=== PATIENT | female | born 1980 ===

== ENCOUNTER 2021-12-26 14:48 | Outpatient (CLI) | payer OTHER, SELFPAY ==
--- OUTSIDE RECORDS SUMMARY | 2021-12-26 14:50 | XMS_ITS | Encounter Summary ---
:1980 Author Organization [facility] Address [address] [place] [id number] Care Team Providers Name Role Phone Unavailable Primary Care Provider Unavailable Reason for Referral Outpatient (Routine) - Closed Specialty Diagnoses / Procedures Referred By Contact Refer red To Contact Diagnoses Allergy Food Initial Amador Sethi M.D., Ph.D. 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 [facility] [address] [place] [address] Referral ID Status Reason Start Date Expiration Date Visits V isits Requested Authorized [id number] Closed Specialty 02/25/2021 02/25/2022 1 1 Services Required Encounter Details Date Type Department Care Team Description 05/17/2021 Comprehensive Visit Division of Luiz Cruz M.D. [address] [place] [phone] Allergy Food Initial (Primary Dx); Allergic Diseases Merlyn So M.D. 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 2-4 times a month 05/17/2021 How many drinks containing alcohol do you have on a 1 or 2 05/17/2021 typical day when you are drinking? How often do you have six or more drinks on one Never 05/17/2021 occasion? Comment: Not asked Social Isolation Answer Date Recorded In a typical week, how many times do you More than three tor es a week 05/17/2021 talk on the phone with family, friends, or neighbors? How often do you get together with friends Three times a wee k 05/17/2021 or relatives? How often do you attend adventism or Never 2021 scientologist services? Do you belong to any clubs or No 05/17/2021 organizations such as adventism groups, unions, fraternal or athletic groups, or school groups? How often do you attend meetings of the Never 05/17/2021 clubs or organizations you belong to? Are you now , , , 05/17/2021 , never or living with a partner? Physical Activity Answer Date Recorded On average, how many days per week do you engage in moderate to 3 days 05/17/2021 strenuous exercise (like walking fast, running, jogging, dancing, swimming, biking, or other activities that cause a light or heavy sweat)? On average, how many minutes do you engage in exercise at th is 20 min 05/17/2021 level? Stress Answer Date Recorded Do you feel stress - tense, restless, nervous, or anxious, N ot at all 05/17/2021 or unable to sleep at night because your mind is troubled all the time - these days? Financial Resource Strain Answer Date Recorded How hard is it for you to pay for the very basics like Not h felicity at all 05/17/2021 food, housing, medical care, and heating? Intimate Partner Violence Answer Date Recorded Within the last year, have you been afraid of your partner o r No 05/17/2021 ex-partner? Within the last year, have you been humiliated or emotionall y No 05/17/2021 abused in other ways by your partner or ex-partner? Within the last year, have you been kicked, hit, slapped, or No 05/17/2021 otherwise physically hurt by your partner or ex-partner? Within the last year, have you been raped or forced to have any No 05/17/2021 kind of sexual activity by your partner or ex-partner? Food Insecurity Answer Date Recorded Within the past 12 months, you worried that your food would Never true 05/17/2021 run out before you got money to buy more. Within the past 12 months, the food you bought just didn't N ever true 05/17/2021 last and you didn't have money to get more. Transportation Needs Answer Date Recorded In the past 12 months, has lack of transportation kept you f rom No 05/17/2021 medical appointments or from getting medications? In the past 12 months, has lack of transportation kept you f rom No 05/17/2021 meetings, work, or getting things needed for daily living? Housing Stability Answer Date Recorded In the last 12 months, was there a time when you were not ab le No 05/17/2021 to pay the mortgage or rent on time? In the last 12 months, how many places have you lived? 1 05/17/2021 In the last 12 months, was there a time when you did not hav e a No 05/17/[address] sleep or slept in a fpc (including now)? Education Answer Date Recorded What is the highest level of school you have completed or th e Doctorate 02/20/2021 highest degree you have received? Sex Assigned at Date Recorded Female 02/20/2021 9:06 PM [employer] PACK[employer] documented as of this encounter Consult Notes Amador Sethi M.D., Ph.D. - 05/17/2021 10:00 AM CST Supervising note Ann Monreal is a 40 y.o. female with food related symptoms. I interviewed and counseled the patient,and discussed her case with . Please see her clinical note from today. The patient reports that about 6 years ago, she consumed anchovies, and developed sore throat, throat tightness and rash.This was treated with corticosteroids and resulted in an emergency department visit. The patient states that she subsequently consumed a small amount of shrimp, possibly a tsp, and developed minor throat symptoms. Similarly, the patient states that she consumed tuna, not canned, and a small amount triggered minor throat symptoms. The patient can consume salmon and white fish without problem. The patient is concerned about possible seafood allergy, and would like to reintroduce shrimp and tuna into her diet, if possible The patient has a gastrointestinal condition, possibly functional. She states that on 1 occasion consuming a large quantity of pistachios may have triggered symptoms, although she may continue to consume smaller amounts of pistachio without problem. The patient states that consumption of edamame on 1 occasion seem to trigger symptoms, although she had consumed edamame prior to this time without problem. She can consume other soy products without problems. Impression #1 Food allergy versus food intolerance We discussed the clinical objective of determining whether or not the patient can reintroduce shrimpand tuna into her diet. After discussion, we agreed to proceed with in vitro IgE antibody tests, andallergy skin testing. I will include in vitro IgE antibody testing to anchovy. If allergy skin testsand blood tests are negative, we discussed proceeding with a medically supervised oral food challenge to shrimp, and tuna. Patient shows readiness to learn. I find no barriers to communication or understanding. Patient shows full understanding of our discussion. We will communicate through the patient portal, and I will arrange for oral food challenge if clinically appropriate. Merlyn Reagan M.D. - 05/17/2021 10:00 AM CST SUBJECTIVE CHIEF COMPLAINT / REASON FOR VISIT Ann Monreal is a 40 y.o. female presenting in referral from Luiz Cruz M.D. for consultation in the evaluation of food allergies. HISTORY OF PRESENT ILLNESS The patient states that she has had abdominal pain mostly in the lower quadrants sporadically since she was an adolescent. She states that the pain improves after she has a bowel movement or if she vomits. She states that these episodes occur her sporadically, sometimes multiple times a year and sometimes once in every few years. She has noticed that they are correlated with times of increased stressin her life. She has not noticed any food associations. She states that her most recent episode, which occurred in the 2nd week of April, happened right after she ate some edamame. She states that she has edamame often, and has not had a reaction with the before. Previously, she has had an episode when she ate too many pistachios. She is able to eats soy products without any problems otherwise. Forthis abdominal pain, she has tried excluding dairy and gluten. She noticed minimal improvement. She has also had an extensive workup which has been negative thus far. She had an episode 6 years ago when she ate anchovies stuffed in tomato which caused a sore throat and throat tightness soon after. This was accompanied by a rash. She then took some steroids that she had at home and went to the ED. At this point she was prescribed a an EpiPen. She has since been hesitant to try most seafoods. She has had a bite of shrimp and tuna which led to a sore throat and she stopped eating thereafter. She is unsure if this is a component of anxiety versus real food allergy. She has had [place] and white fish and tolerated them well. She would like to incorporate more seafood into her diet and is interested in getting tested for allergies today. The following portions of the patient's history were reviewed and updated as appropriate: allergies,current medications, family history, medical history, social history, surgical history and problem list. REVIEW OF SYSTEMS Gastrointestinal: Positive for abdominal (belly) pain or cramping. The following systems were negative: Constitutional, Skin, Eyes, ENT, CV, Respiratory, , Hematologic, Musculoskeletal, Neuro, Psych OBJECTIVE PHYSICAL EXAM Constitutional General: She is not in acute distress. Appearance: Normal appearance. She is normal weight. She is not ill-appearing, toxic-appearing or diaphoretic. HENT Head: Normocephalic and atraumatic. Eyes Extraocular Movements: Extraocular movements intact. Pulmonary Effort: Pulmonary effort is normal. Musculoskeletal General: Normal range of motion. Cervical back: Normal range of motion. Skin General: Skin is warm and dry. Findings: No rash. Neurological General: No focal deficit present. Mental Status: She is alert. Psychiatric Mood and Affect: Mood normal. Behavior: Behavior normal. ASSESSMENT / PLAN #1 Pain Right Lower Quadrant #2 Diarrhea Her abdominal pain and other GI symptoms do not seem to have a correlation with a specific food triggers and therefore are unlikely to be due to a specific food intolerance. Her symptoms are sporadic and seemed to be more associated with psychosocial triggers in her life. Given the history, this couldbe a functional disorder. 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 Given that she would like to add shrimp and tuna toher diet, we will obtain in-vitro shrimp, tuna, anchovie allergy testing. We will also perform a skin test for these allergens. If she does not reactive tremor tuna, we will perform a oral food challenge in the clinic, in order for her to enjoy these foods. We advised her to avoid anchovies as she hada reaction soon after eating them. She carries an EpiPen. [employer] documented in this encounter Plan of Treatment Not on filedocumented as of this encounter Results Tuna, IgE (05/17/2021 12:20 PM CHECKER [employer] PACKER) athologist Signature Tuna, IgE <0.35 kU/L 05/17/2021 6:19 [facility] PM [facility]ER AND PACKER Comment: Class 0 (Negative <0.35) Specimen Anatomical Collection Method Collection Time Receive d Time (Source) Location / / Volume Laterality Blood (Blood, 05/17/2021 12:20 05/17/2021 3:57 Venous) PM [employer] PACKER PM [employer] PACKER Amador Sethi M.D., Ph.D. LAB BLOOD ADD-ON Performing Organization Address City/State/ZIP Code Phon e Number [facility] [address] [place] [address] Laboratory Medicine and Pathology [address] [place] [address] Dr. MODESTA Campbell, IgE (05/17/2021 12:20 PM [employer]ER AND PACKER) athologist Signature Shannan, IgE <0.35 kU/L 05/17/2021 6:19 [facility] PM [employer] AND PACKER Comment: Class 0 (Negative <0.35) Specimen Anatomical Collection Method Collection Time Receive d Time (Source) Location / / Volume Laterality Blood (Blood, 05/17/2021 12:20 05/17/2021 3:57 Venous) PM [employer] PACKER PM [employer] PACKER Amador Sethi M.D., Ph.D. LAB BLOOD ADD-ON Performing Organization Address [facility] Phon e Number [address] [place] [address] Laboratory Medicine and Pathology [address] [place] [address] Dr. MODESTA Sparrow IgE (05/17/2021 12:20 PM CHECKER AND PACKER) [facility] Kyara, IgE <0.35 kU/L 05/17/2021 [facility] 6:31 PM [employer] AND PACKER Comment: Class 0 (Negative <0.35) ----ADDITIONAL INFORMATION---- This test was developed using an analyte specific reagent. Its performance characteristics were det ermined by [facility] in a manner consistent with CLIA requirements. This test has not been cleared or approved by the U.S. Food and Drug Administration. Specimen Anatomical Collection Method Collection Time Receive d Time (Source) Location / / Volume Laterality Blood (Blood, 05/17/2021 12:20 05/17/2021 3:57 Venous) PM [employer] PACKER PM [employer] PACKER Amador Sethi M.D., Ph.D. LAB BLOOD ADD-ON Performing Organization Address City/[facility] Phon e Number [address] [place] [address] Laboratory Medicine and Pathology [address] [place] [address] Dr. [place] Miscellaneous Skin Test (05/17/2021 12:00 PM CHECKER AND PACKER) Narrative [facility] - 05/17/2021 12:00 PM CHECKER AND PACKER Augustus Khan M.D. ? 05/18/2021 ??7:18 PM Panel Skin Tests ?? Flowsheet Row Clinical Support from 2021 in Division of Allergic Diseases in [facility] a Controls ?? Prick Control 0 Histamine (15 min W/F) 8x8f Glycerine (15 min W/F) 0 Fish ?? Shrimp (shellfish) 0 Tuna 0 Negative Skin Test. ??Clinical correlati on recommended. Amador Sethi M.D., Ph.D. 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
--- OUTSIDE RECORDS SUMMARY | 2021-12-26 14:50 | XMS_ITS | Encounter Summary ---
:1980 Author Organization [facility] Address [address] [place] [address] Care Team Providers Name Role Phone Unavailable Primary Care Provider Unavailable Reason for Referral Outpatient (Routine) - Authorized Specialty Diagnoses / Procedures Referred By Contact Refer red To Contact Luiz Cruz M.D. 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 [facility] [address] [place] [phone] Referral ID Status Reason Start Date Expiration Date Visits V isits Requested Authorized [id number] Closed Specialty 02/25/2021 02/25/2022 1 1 Services Required PENDENT PRODUCER Reason for Visit Outpatient (Routine) - Closed Specialty Diagnoses / Referred By Referred To Cont act Procedures Contact Gastroenterology and Diagnoses Pain Abdominal NOS [facility] [address] [place] [address] Referral ID Status Reason Start Date Expiration Date Visits Requ ested Visits Authorized [id number] Closed 11/26/2020 11/26/2021 1 1 Encounter Details Date Type Department Care Team Description 02/25/2021 Comprehensive Visit Division of Serina Bonner N.P. 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 [address] [place] [phone] Pain Right Lower Quadrant; [place], [place] Diarrhea; [address] [facility] [place] [address] Social History Tobacco Use Types Packs/Day Years [...] or relatives? How often do you attend muslim or Never 2021 methodist services? Do you belong to any clubs or No 05/17/2021 organizations such as muslim groups, unions, fraternal or athletic groups, or [...] place to sleep or slept in a halfway (including now)? Education Answer Date Recorded What is the highest level of school you have completed or th e Doctorate 02/20/2021 highest degree you have received? Sex Assigned at Date Recorded Female 02/20/2021 9:06 PM INDEPENDENT PRODUCER documented as of this encounter Last Filed Vital Signs Vital Sign Reading Time Taken Comments Blood Pressure 118/78 02/25/2021 1:00 PM INDEPENDENT PRODUCER Pulse 66 02/25/2021 1:00 PM INDEPENDENT PRODUCER Temperature - - Respiratory Rate - - Oxygen Saturation - - Inhaled Oxygen Concentration - - Weight 59 kg (130 lb 1.1 oz) 02/25/2021 1:00 PM INDEPENDENT PRODUCER Height 162.4 cm (5' 3.94) 02/25/2021 1:00 PM INDEPENDENT PRODUCER Body Mass Index 22.37 02/25/2021 1:00 PM INDEPENDENT PRODUCER documented in this encounter Consult Notes Fabiola Long M.D., Ph.D. - 02/25/2021 1:10 PM CST This is GI supervisory note (for details of history, please refer to Luiz Nye note) I reviewed the patient's documentation as outlined in GI fellow physician Luiz Nye's note andalso evaluated the patient myself at the time of service. We discussed the patient's care in detail,and I agree with the assessment and recommendations as outlined. In brief, 40 y/o F, complaint of chronic GI episodesdistress, (question of IBS history per pt) without clear triggers; unpredictable, abdominal discomfort/bloat/gas; outside CT 11/2020- increased stool burden, otherwise unrevealing; denied rectal straining, denied defecation issue; pt mentioned abo ut a severe skin reaction (rash/desquamation per pt) after consumed anchovy, which occurred about 5 yrs ago; underlying hx of asthma; Hx of 3 vaginal deliveries; No alarming sign, no anemia, no weight loss, no nocturnal GI symptom; ASSESSMENT / PLAN IMPRESSIONS 1. Chronic GI episodes (abd distress, bloat/gas, some bowel urgency), unidentified trigger; no alarming signs, no clear pelvic floor dysfunction, no rectal defecation issue; Differentials: food intolerance or ?allergy; 2. Noticed significant immunologic reaction (severe skin rashes) after anchovy (per pt, not first time consumed) 5 yrs ago; 3. Hx of asthma; we decided to proceed as follows: 1. Empiric trial miralax for more complete bowel defecation 2. Allergy/Immunology clinic referral for question of food/environment allergens; 3. We discussed about in broader differential could include eosinophilic gastroenteritis (which needendoscopic tissue bx), pt prefer not to proceed these at this point 4. Possible future plan of low-FODMAP diet (with pet care technician guidance) 5. encourgae pt to follow up GI clinic (Luiz Nye) or if any question; Electronically signed by: Fabiola Long M.D., Ph.D. 02/25/2021 2:29 PM INDEPENDENT PRODUCER PENDENT PRODUCER Luiz Cruz M.D. - 02/25/2021 1:10 PM CST GASTROENTEROLOGY & HEPATOBILIARY CONSULT Date/Time: 02/25/2021 2:52 PM INDEPENDENT PRODUCER Patient Name: Ann Monreal : 1980 Referral Source: Mirela Bonner N.P. Subjective: HPI: Mrs. Monreal presents for further evaluation regarding intermittent episodes of abdominal distress. She shares that even in her youth as a teenager she did have gastrointestinal symptoms that were quite sporadic in nature. She finds it hard to classify whether these symptoms have progressed since that time. However, some of the episodes have been alarming. This subsequently led to seeking further medical evaluation. Outside of the windows of abdominal distress she maintains a cleansing bowel movement once a day. Columbia stool quality is a 4. She does not need to strain, push, or utilize digitation in order to facilitate the passage of stool. Furthermore, she has no additional gastrointestinal symptoms such as abdominal pain, nausea, or vomiting. During her episodes they often begin with a stomach/spasm sensation. This is localized to the lower quadrants bilaterally. It will then crescendo in terms of intensity, and at that point she will try to have a bowel motion. After a bowel motion she will have improvement of the pain. Overall this will last an hour. Other associated symptoms can include nausea as well as forceful emesis. During these episodes her Columbia stool quality is a 5 or a 6. There is no firmer stool ever noted. Fortunately, there have not been any other high risk features based on her description. During an episode this may recur a few times within a day. Sometimes they can occur a few times a day over a duration of 2-3 days. Over the last summer she did have several. Her most recent was in January. It seems in November she was also experiencing some of these sequelae, and abdominal imaging was obtained at that time. In further discussion, it does seem she has intensification of her abdominal gas during menses. Through review, it does not seem there are any other clear patterns. Furthermore, there are no changes inher bowel characteristics or dietary behaviors leading up to these events. There has been only one occasion where a high volume of pistachio nuts was thought to maybe be linked. In the past she did have an allergic reaction with the ingestion of anchovies. ROS: Other than the pertinent positives and negatives listed in the HPI, all other systems were reviewed and negative. History Review: The following portions of the patient's history were reviewed and updated as appropriate: allergies,current medications, family history, medical history, social history, surgical history and problem list. Objective: Vital Signs: Vitals: 02/25/21 1300 BP: 118/78 Pulse: 66 Physical Exam: General: Resting comfortably. Skin: Warm, dry, intact. No rash, lesion, or ecchymoses. Head: Normocephalic, atraumatic. ENT: Moist mucosal membranes. PERRLA. Lymph: No lymphadenopathy or edema. Heart: Regular rate and rhythm, no murmur, gallop, or rub. Lungs: Clear to auscultation bilaterally, normal respiratory effort. Abdomen: No tenderness is elicited with palpation. Appropriate abdominal sounds are noted. No masslike density. Nondistended. Rectum: On simulated defecation there is increased movement of the perineum. Resting tone as well asvoluntary squeeze are normal. No paradoxical contraction is noted with simulated defecation. There is significant anterior wall prolapse. Stool is retained within the rectal vault. No blood. MSK: Normal muscle bulk. Neuro: No gross sensory motor deficits. Mental: Alert and oriented. Assessment and Plan: Mrs. Monreal is a very pleasant 40-year-old lady who presents for further evaluation of episodic abdominal pain and nausea with symptomatic improvement after defecation and vomiting. DISCUSSION: In review of the available outside studies, the most pertinent was the CT of the abdomen and pelvis from November of 2020. We had an opportunity to review those images. Overall, she does have significantloading of stool primarily along the right side of the colon. It seems much of her cecum and ascending colon lay deep within the pelvis. Physical exam did note significant prolapse of the anterior rectal vault in lieu of vaginal prolapse into this space. We do question whether there is slow retention of stool that ultimately leads to colonic distention and a perceived abdominal pain/distension. She does not meet criteria for irritable bowel syndrome. Fortunately, CT did not find any other structuralcause for her abnormality. Our review does not suggest features that would otherwise warrant endoscopy at this juncture. In review of her local evaluation, there have been other davis studies conducted. TSH, CRP, stool assessment for ova and parasites, as well as H pylori have resulted normal. Celiac serology was assessed and normal. At this time she has had an appropriate evaluation. Through our discussion, we do find the historic allergic reaction to anchovies quite curious. She would welcome further assessment in thisregard to determine if she needs to firmly stay away from this product. Overall, we are quite hopeful that with conservative prophylactic medications as well as those utilized as needed will provide significant symptomatic improvement. At this time we plan to proceed as follows. 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 We will facilitate a connection to allergy to further review the anaphylactic reaction ??? She will utilize MiraLax and titrate to obtain a standing dose to further help mobilize her stool ??? We would encourage her to connect with her primary care physician to review the utilization of an anti spasmodic such as Bentyl or Levsin. This agent could be utilized during the time of abdominal pain/spasm ??? Will connect in the coming months to review how she is doing ??? Should there be symptom progression 1 would consider anorectal manometry as well as an MR decography Luiz Cruz M.D. This patient was staffed with Dr. Long. PATIENT EDUCATION Ready to learn, no apparent learning barriers were identified; learning preferences include listening. Explained diagnosis and treatment plan; patient expressed understanding of the content. Answers for HPI/ROS submitted by the patient on 02/24/2021 Night sweats: Yes No eye issues: Yes No ENT issues: Yes No heart issues: Yes No respiratory issues: Yes Abdominal (belly) pain or cramping: Yes No muscle/bone issues: Yes No skin issues: Yes No neurologic issues: Yes No mental health issues: Yes No blood/lymph issues: Yes No urinary/reproductive issues: Yes PENDENT PRODUCER documented in this encounter Plan of Treatment Scheduled Referrals Name Type Priority Associated Order Schedule Diagnoses Allergy and Outpatient Referral Routine Pain Right Lower Expe cted: Immunology - General Quadrant 02/25/2021 consult (clinic) Diarrhea (Approximate), Anaphylactic Expires: Reaction Due To 02/26/2024 Other Fish Initial NonF2F phone visit Outpatient Referral Routine Ex pected: 05/28/2021 (Approximate), Expires: 02/26/2024 documented as of this encounter Visit Diagnoses Diagnosis 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
--- OUTSIDE RECORDS SUMMARY | 2021-12-26 14:50 | XMS_ITS | Encounter Summary ---
:1980 Author Organization [facility] Address [address] [place] [address] Care Team Providers Name Role Phone Unavailable Primary Care Provider Unavailable Encounter Details Date Type Department Care Team Description 05/13/2021 Clinical Communication Division of [facility] Alex So, [facility] [address] [place], [place] [address] [facility] [address] [place], [place] [phone] [phone] (Work) [phone] Social History Tobacco Use Types Packs/Day Years [...] or relatives? How often do you attend jehovah's witness or Never 2021 muslim services? Do you belong to any clubs or No 05/17/2021 organizations such as jehovah's witness groups, unions, fraternal or athletic groups, or [...] minutes do you engage in exercise at is 20 min 05/17/2021 level? Stress Answer [...] place to sleep or slept in a long-term (including now)? Education Answer Date Recorded What is the highest level of school you have completed or th e Doctorate 02/20/2021 highest degree you have received? Sex Assigned at Date Recorded Female 02/20/2021 9:06 PM CLEANER LABORATORY EQUIPMENT documented as of this encounter Plan of Treatment Not on filedocumented as of this encounter Visit Diagnoses Not on filedocumented in this encounter
--- OUTSIDE RECORDS SUMMARY | 2021-12-26 14:50 | XMS_ITS | Encounter Summary ---
:1980 Author Organization [facility] Address [address] [place] [address] Care Team Providers Name Role Phone Unavailable Primary Care Provider Unavailable Encounter Details Date Type Department Care Team Description 05/17/2021 Hospital Encounter Department of Amador Sethi, Allergy Food Initial Laboratory Medicine MKaitlyn., Ph.D. and Pathology, [address] [facility] in [place], [place] [address] [place] [address] [place], [place] (Work) [phone] Social History Tobacco Use Types Packs/Day [...] or relatives? How often do you attend gnosticism or Never 2021 mu-ism services? Do you belong to any clubs or No 05/17/2021 organizations such as gnosticism groups, unions, fraternal or athletic groups, or [...] place to sleep or slept in a long term (including now)? Education Answer Date Recorded What is the highest level of school you have completed or e Doctorate 02/20/2021 highest degree you have received? Sex Assigned at Date Recorded Female 02/20/2021 9:06 PM SENIOR LEAD JAVA DEVELOPER documented as of this encounter Medications at Time of Discharge Medication Sig Dispensed Refills Start Date End Date albuterol 90 Every 4 Hours as 0 07/06/2015 mcg/actuation inhaler needed buPROPion (WELLBUTRIN SR) Take 150 mg by mouth 0 03/18/2021 150 mg 12 hr tablet every morning. buPROPion, smoking Daily 0 deterrent, (ZYBAN) 150 mg 12 hr tablet cholecalciferol (VITAMIN Taking occasionally 0 D3) 125 mcg (5,000 Unit) tablet NUTRITIONAL SUPPLEMENTS Daily 0 ORAL [id number]-smog 0 oil 1,050-1,200 mg capsule sertraline (ZOLOFT) 100 Daily 0 05/27/2015 mg tablet documented as of this encounter Miscellaneous Notes Result Encounter Note - Amador Sethi M.D., Ph.D. - 05/18/2021 8:13 AM SENIOR LEAD JAVA DEVELOPER Allergy blood tests and skin tests negative. I can arrange for an oral food challenge if patient wishes. OR LEAD JAVA DEVELOPER documented in this encounter Plan of Treatment Not on filedocumented as of this encounter Procedures Procedure Name Priority Date/Time Associated Diagnosis Comme nts TUNA, IGE, S Routine 05/17/2021 12:20 PM Allergy Food Initial Results for this SENIOR LEAD JAVA DEVELOPER procedure are i n the results section. SHRIMP, IGE, S Routine 05/17/2021 12:20 PM Allergy Food Initia l Results for this SENIOR LEAD JAVA DEVELOPER procedure are i n the results section. ANCHOVY, IGE, S Routine 05/17/2021 12:20 PM Allergy Food Initi al Results for this SENIOR LEAD JAVA DEVELOPER procedure are i n the results section. documented in this encounter Results Mayo IgE (05/17/2021 12:20 PM SENIOR LEAD JAVA DEVELOPER) athologist Signature Mayo, IgE <0.35 kU/L 05/17/2021 6:19 SDSC PM SENIOR LEAD JAVA DEVELOPER Comment: Class 0 (Negative <0.35) Specimen Anatomical Collection Method Collection Time Receive d Time (Source) Location / / Volume Laterality Blood (Blood, 05/17/2021 12:20 05/17/2021 3:57 Venous) PM SENIOR LEAD JAVA DEVELOPER PM SENIOR LEAD JAVA DEVELOPER Amador Sethi M.D., Ph.D. LAB BLOOD ADD-ON Performing Organization Address [facility] Phon e Number [address] [place] [address] SUPPORT [facility] [place] [address] Laboratory Medicine and Pathology [address] [place] [address] Dr. MODESTA Campbell IgE (05/17/2021 12:20 PM SENIOR LEAD JAVA DEVELOPER) athologist [facility] Shrimp, IgE <0.35 kU/L 05/17/2021 6:19 SDSC PM SENIOR LEAD JAVA DEVELOPER Comment: Class 0 (Negative <0.35) Specimen Anatomical Collection Method Collection Time Receive d Time (Source) Location / / Volume Laterality Blood (Blood, 05/17/2021 12:20 05/17/2021 3:57 Venous) PM SENIOR LEAD JAVA DEVELOPER PM SENIOR LEAD JAVA DEVELOPER Amador Sethi M.D., Ph.D. LAB BLOOD ADD-ON Performing Organization Address City/[facility] Phon e Number [address] [place] [address] [place] [address] Laboratory Medicine and Pathology [address] [place] [address] Dr. MODESTA Sparrow IgE (05/17/2021 12:20 PM SENIOR LEAD JAVA DEVELOPER) athologist [facility] [place] Kyara, IgE <0.35 kU/L 05/17/2021 [facility] 6:31 PM SENIOR LEAD JAVA DEVELOPER Comment: Class 0 (Negative <0.35) ----ADDITIONAL INFORMATION---- This test was developed using an analyte specific reagent. Its performance characteristics were det ermined by [facility] in a manner consistent with CLIA requirements. This test has not been cleared or approved by the U.S. Food and Drug Administration. Specimen Anatomical Collection Method Collection Time Receive d Time (Source) Location / / Volume Laterality Blood (Blood, 05/17/2021 12:20 05/17/2021 3:57 Venous) PM SENIOR LEAD JAVA DEVELOPER PM SENIOR LEAD JAVA DEVELOPER Amador Sethi M.D., Ph.D. LAB BLOOD ADD-ON Performing Organization Address City/State/ZIP Code Phon e Number [facility] [address] [place] [address] SUPPORT CENTER [facility] [place] [address] Laboratory Medicine and Pathology [address] [place] documented in this encounter Visit Diagnoses Diagnosis Allergy Food Initial documented in this encounter
--- OUTSIDE RECORDS SUMMARY | 2021-12-26 14:50 | XMS_ITS | Encounter Summary ---
:1980 Author Organization [facility] Address [address] [place] [address] Care Team Providers Name Role Phone Unavailable Primary Care Provider Unavailable Reason for Referral Outpatient (Routine) - Closed Specialty Diagnoses / Referred By Referred To Cont act Procedures Contact Gastroenterology and Diagnoses Pain Abdominal NOS Diarrhea [facility] [address] [place] [address] Referral ID Status Reason Start Date Expiration Date Visits Requ ested Visits Authorized [id number] Closed 11/26/2020 11/26/2021 1 1 Encounter Details Date Type Department Care Team Description 11/26/2020 [facility] Mirela Bonner P ain Abdominal NOS (Primary Dx); AND CLINICS N.P. Diarrhea [address] [facility] [address] [place] [address] [place], [place] [phone] [id number] Social History Tobacco Use Types Packs/Day Years Used Date Smoking Tobacco: Never Assessed Alcohol Habits Answer Date Recorded How often [...] or relatives? How often do you attend buddhism or Never 2021 yarsanism services? Do you belong to any clubs or No 05/17/2021 organizations such as buddhism groups, unions, fraternal or athletic groups, or [...] place to sleep or slept in a retirement (including now)? Sex Assigned at Date Recorded Female 02/20/2021 9:06 PM MANAGER LANDSCAPE documented as of this encounter Plan of Treatment Scheduled Referrals Name Type Priority Associated Order Schedule Diagnoses Gastroenterology & Outpatient Routine Pain Abdomina l NOS Expected: Hepatology Referral Referral Diarrhea 11/27/19 21 (Approximate), Expires: 11/27/2023 documented as of this encounter Visit Diagnoses Diagnosis Pain Abdominal NOS - Primary Diarrhea documented in this encounter
--- OUTSIDE RECORDS SUMMARY | 2021-12-26 14:50 | XMS_ITS | Clinical Summary ---
:1980 Author Organization [facility] Address [address] [place] [address] Care Team Providers Name Role Phone Unavailable Primary Care Provider Unavailable Source Comments Patient records contain information from all sites at [facility]. For routine questions regarding patient records, call [phone] during business hours, M-F 8:00 AM - 5:00 PM Central Time. Record requests for emergency care only can be directed to [phone] at any time.[facility] Allergies Active Allergy Reactions Severity Noted Date Comments Fish Oil (Anchovy, Sardine) Anaphylaxis Low 11/26/2018 Inhaled Anesthetics (Halogen Based) Anaphylaxis 02/03 Medications Medication Sig Dispensed Refills Start Date End Date Status sertraline (ZOLOFT) Daily 0 05/27/2015 Active 100 mg tablet cholecalciferol Taking 0 06/01/2015 Act js (VITAMIN D3) 125 mcg occasionally (5,000 Unit) tablet buPROPion, smoking Daily 0 A ctive deterrent, (ZYBAN) 150 mg 12 hr tablet albuterol 90 Every 4 Hours as 0 07/06/2015 Active mcg/actuation inhaler needed [id number] Active sh oil 1,050-1,200 mg capsule NUTRITIONAL Daily 0 Active SUPPLEMENTS ORAL buPROPion (WELLBUTRIN Take 150 mg by 0 03/18/2021 Active SR) 150 mg 12 hr mouth every tablet morning. Active Problems No known active problems Family History Medical History Relation Name Comments Ulcerative colitis Mother Relation Name Status Comments Mother Social History Tobacco Use Types Packs/Day Years [...] or relatives? How often do you attend zoroastrian or Never 2021 christianity services? Do you belong to any clubs or No 05/17/2021 organizations such as zoroastrian groups, unions, fraVolance or athletic groups, or school groups? How [...] at Date Recorded Female 02/20/2021 9:06 PM SPECIAL EDUCATION SUPERINTENDENT Last Filed Vital Signs Vital Sign Reading Time Taken Comments Blood Pressure 118/78 02/25/2021 1:00 PM SPECIAL EDUCATION SUPERINTENDENT Pulse 66 02/25/2021 1:00 PM SPECIAL EDUCATION SUPERINTENDENT Temperature - - Respiratory Rate - - Oxygen Saturation - - Inhaled Oxygen Concentration - - Weight 59 kg (130 lb 1.1 oz) 02/25/2021 1:00 PM SPECIAL EDUCATION SUPERINTENDENT Height 162.4 cm (5' 3.94) 02/25/2021 1:00 PM SPECIAL EDUCATION SUPERINTENDENT Body Mass Index 22.37 02/25/2021 1:00 PM SPECIAL EDUCATION SUPERINTENDENT Plan of Treatment Health Maintenance Due Date Last Done Comments HIV Screening 1980 Hepatitis B Vaccines (1 of 1980 3 - 3-dose series) Hepatitis C Screening 1980 Lipid (Cholesterol) 1980 Screening Mammogram 1980 DTaP,Tdap,and Td Vaccines 01/30/2021 01/30/2011, 01/30/2011 , (3 - Tdap) 01/10/2011 Depression Screening 04/16/2021 (Annual PHQ-2) Influenza Vaccine (#1) 2022 01/12/2021, 01/06/2020, 02/17/2019, Additional history exists Cervical Cancer Screening 02/17/2022 02/17/2019 COVID-19 Vaccine Completed 03/14/2021, 08/24/2020, 07/27/2020 Pneumococcal vaccine (0-64 Aged Out No lo nger eligible years) based on patient 's age to complete this topic Insurance Payer Benefit Plan / Subscriber ID Effective Phone Address T e Group [facility] [id number] 2014-Pres [phone] [address] PPO OPEN ACCESS [facility] [address] [place] [address]
--- OUTSIDE RECORDS SUMMARY | 2021-12-26 14:50 | XMS_ITS | Encounter Summary ---
:1980 Author Organization [facility] Address [address] [place] [address] Care Team Providers Name Role Phone Unavailable Primary Care Provider Unavailable Reason for Visit Reason Comments Allergy Testing Outpatient (Routine) - Closed Specialty Diagnoses / Procedures Referred By Contact Refer red To Contact Diagnoses Allergy Food Initial Amador Sethi M.D., Ph.D. [facility] Procedures Miscellaneous Skin Test [address] [place], [place] [phone] Referral ID Status Reason Start Date Expiration Date Visits Requ ested Visits Authorized [id number] Closed 05/17/2021 05/17/2022 1 1 Encounter Details Date Type Department Care Team Description 05/17/2021 Clinical Support Division of Allergic Amador Sethi M.D., Ph.D. [address] [place] [phone] Allergy Food Initial Diseases in Evelina Hodgson R.N. [place], [place] [address] [place] [phone] Social History Tobacco Use Types Packs/Day Years [...] or relatives? How often do you attend restorationism or Never 2021 taoist services? Do you belong to any clubs or No 05/17/2021 organizations such as restorationism groups, unions, fraternal or athletic groups, or [...] place to sleep or slept in a usp (including now)? Education Answer Date Recorded What is the highest level of school you have completed or e Doctorate 02/20/2021 highest degree you have received? Sex Assigned at Date Recorded Female 02/20/2021 9:06 PM WEARING APPAREL FOLDER documented as of this encounter Procedure Notes Augustus Khan M.D. - 05/17/2021 12:00 PM CSTAssociated Order(s): ALI MISCELLANEOUS SKIN TEST Panel Skin Tests Flowsheet Row Clinical Support from 05/17/2021 in Division of Allergic Diseases in [place], [place] Controls Prick Control 0 Histamine (15 min W/F) 8x8f Glycerine (15 min W/F) 0 Fish Shrimp (shellfish) 0 Tuna 0 Negative Skin Test. Clinical correlation recommended. ING APPAREL FOLDER documented in this encounter Plan of Treatment Not on filedocumented as of this encounter Procedures Procedure Name Priority Date/Time Associated Comments Diagnosis ALI MISCELLANEOUS SKIN Routine 05/17/2021 12:00 Allergy Food R esults for this TEST PM WEARING APPAREL FOLDER Initial procedure are i n the results section. documented in this encounter Results Miscellaneous Skin Test (05/17/2021 12:00 PM WEARING APPAREL FOLDER) Narrative [facility]ODAL - 05/17/2021 12:00 PM WEARING APPAREL FOLDER Augustus Khan M.D. ? 05/18/2021 ??7:18 PM Panel Skin Tests ?? Flowsheet Row Clinical Support from 2021 in Division of Allergic Diseases in [facility] a Controls ?? Prick Control [...]
--- OUTSIDE RECORDS SUMMARY | 2021-12-26 14:51 | XMS_ITS | Clinical Summary ---
:1980 Author Organization [facility] [place] [address] Care Team Providers Name Role Phone Des Freeman MD Primary Care Provider Allergies Active Allergy Reactions Severity Noted Date Comments Inhaled Anesthetics (Halogen Based) Anaphylaxis 02/03 Medications Medication Sig Dispensed Refills Start Date End Date Status sertraline 3 05/27/2015 Active (ZOLOFT) 100 mg tablet Cholecalciferol, Take by mouth once 0 06/01/2015 Active Vitamin D3, daily. (VITAMIN D-3) 5,000 unit tab buPROPion 3 08/19/2015 Active (WELLBUTRIN SR; ZYBAN) 150 mg Sustained-Release tablet medication order Vital [employer] Adrenal 0 01/26/2017 Active composer Supplement, Iron, Vit B complex, Methyl-Guard, Arthobiotic 100, Arbinogalactan Powder, Vit D with K2, Digestive enzymes Active Problems Problem Noted Date Family history of diabetes mellitus in father 03/08/20 15 (spontaneous vaginal delivery) 10/11/2014 Depression 10/11/2014 Overview: Stable on wellbutrin/Zoloft Sees psychiatrist Anxiety 10/11/2014 Overview: Stable on Wellbutrin and Zoloft Sees psychiatrist AMA (advanced maternal age) multigravida 35+ 5 Prolonged, labor, first stage 10/09/2014 Supervision of normal in third trimester Resolved Problems Problem Noted Date Resolved Date Supervision of normal first 02/04/2012 Prolonged second stage of labor 02/04/2012 10/09/19 15 Vacuum extraction, delivered, current hospitalization 201110/08/2014 Immunizations Name Administration Dates Next Due AMB Influenza, IIV3 (Age >=3 years) Preserve Free (Flu 01/14 Clinic Only) Family History Medical History Relation Name Comments Diabetes Father Heart Disease Father Hyperlipidemia Father high cholesterol Hypertension Father Other Father liver disease/de pression Other Maternal Grandfather parkinsonis m Arthritis Maternal Grandmother Hypertension Maternal Grandmother Arthritis Mother osteoarthritis Hypertension Mother Hypertension Paternal Grandfather Other Paternal Grandfather depression Relation Name Status Comments Father Alive Maternal Grandfather Maternal Grandmother Mother Alive Paternal Grandfather Social History Tobacco Use Types Packs/Day Years Used Date Never Smoker Smokeless Tobacco: Never Used Tobacco Cessation: Counseling Given: Yes Alcohol Use Standard Drinks/Week Comments No 0 (1 standard drink = 0.6 oz pure alcoho l) Sex Assigned at Date Recorded Not on file Obstetrics History Para Term AB IAB SAB Ectopic Multiple Living Live Births 2 1 1 1 1 Date Outcome GA Total Labor/2nd/3rd Weight Sex Delivery Anes PTL Farida A 1 A5 Name Clin Labor 02/03 Term M Vag None N Sameera /2011 ng Comments: System Generated. Please review and update details. Last Filed Vital Signs Vital Sign Reading Time Taken Comments Blood Pressure 102/78 10/02/2019 1:35 PM CDT Pulse 64 10/02/2019 1:35 PM CDT Temperature 36.7 ??C (98.1 ??F) 10/11/2014 4:42 AM CDT Respiratory Rate 16 01/26/2017 1:58 PM CDT Oxygen Saturation 98% 09/02/2015 8:29 AM CDT Inhaled Oxygen Concentration - - Weight 58.1 kg (128 lb) 10/02/2019 1:35 PM CDT Height 157.5 cm (5' 2.01) 10/02/2019 1:35 PM CDT Body Mass Index 23.41 10/02/2019 1:35 PM CDT Plan of Treatment Health Maintenance Due Date Last Done Comments COVID-19 vaccine series (#1) 04/24/1979 Hepatitis C screening for age 0710/22/1996 18-79 Depression screening for age 12+ 01/26/2018 01/26/2017, , 06/01/2015 BMI (ht and wt on same day) for 10/01/2020 10/02/2019, 05/18, age 18+ 01/26/2017, Additional history exists Tetanus booster 01/30/2021 01/30/2011 Influenza for age 9-49 12/15/2021 01/27/2015, 01/15/2012 Pap test for age 21-65 02/18/2024 02/17/2019, 02/17/2019, 11/16/2016, Additional history exists Tdap Completed 01/30/2011 Results Not on filefrom Last 3 Months Insurance Payer Benefit Plan / Subscriber ID Effective Dates Phone Addre ss Type Group [employer] [id number] 2014-Present [address] [place] [address] (Home) [place], [place] [phone] (Work) Advance Directives Documents on File Type Date Recorded Patient Training Project Manager Explanati on Treatment Guidelines 10/15/2014 3:43 PM SEPTEMBER 2014 Latest Code Status on File Code Status Date Activated Date Inactivated Comments Full Code 10/09/2014 5:54 AM 10/11/2014 4:05 PM Full Code 10/08/2014 5:37 PM 10/09/2014 5:54 AM Full Code 10/08/2014 5:19 AM 10/08/2014 5:37 PM Full Code 02/04/2012 6:45 PM 02/06/2012 3:59 PM Full Code 02/04/2012 1:48 AM 02/04/2012 6:45 PM Care Teams Pole Framer Relationship Specialty Start Date End Date Des Freeman MD PCP - General Family Practice 09/25/191999 [place] [phone]
--- NOTE | 2021-12-26 15:00 | CRLHL7_ITS ---
For Patients: As a result of the Century Cures Act, medical imaging exams and procedure reports are released immediately into your electronic medical record. You may view this report before your referring provider. If you have questions, please contact your health care provider. BILATERAL SCREENING MAMMOGRAM WITH COMPUTER-AIDED DETECTION AND TOMOSYNTHESIS TECHNIQUE: CC and MLO views were obtained. These mammographic images have been obtained using full-field digital technique. These mammographic images were interpreted with the benefit of computer-aided detection. Breast Tomosynthesis was used in this interpretation. COMPARISON FILM: 12/14/20, 12/27/20 (Left). FINDINGS: The breasts are extremely dense, which lowers the sensitivity of mammography IMPRESSION: There is no radiographic evidence for malignancy. ASSESSMENT: BI-RADS Category 2: Benign RECOMMENDATION: Routine screening mammogram in 1 year. A lay language report of this examination will be provided to the patient. Ted Menendez M.D. Diagnostic Radiologist [email or web address] CHRISTINE/Dictated by: Ted Menendez MD @ 12/27/2021 8:45:00 AM (Electronically Signed)
== END 2021-12-26 14:49 | disposition home or self-care (01) ==
LOC: MAMMO 14:49
PROVIDERS: PCP Family Medicine; Visit Provider Family Medicine
DX: Z12.31 Encounter for screening mammogram for malignant neoplasm of breast (principal); R92.2 Inconclusive mammogram
CPT/HCPCS: 77063; 77067

== ENCOUNTER 2021-12-27 09:21 | Outpatient (CLI) | payer OTHER, SELFPAY ==
[2021-12-27 12:46] LABS: Cholesterol* 221 mg/dL (90-199); HDL Cholesterol* 79 mg/dL (>=50); LDL Cholesterol Calculated 124 mg/dL (<100); Triglycerides* 89 mg/dL (40-149)
[2021-12-27 23:04] LABS: Glucose* 97 mg/dL (60-115)
== END 2021-12-27 09:22 | disposition home or self-care (01) ==
PROVIDERS: PCP Family Medicine; Visit Provider Family Medicine
DX: Z13.1 Encounter for screening for diabetes mellitus (principal); Z13.6 Encounter for screening for cardiovascular disorders
CPT/HCPCS: 80061; 82947

== ENCOUNTER 2022-12-27 12:57 | Outpatient (CLI) | payer OTHER, SELFPAY ==
--- NOTE | 2022-12-27 13:00 | CRLHL7_ITS ---
For Patients: As a result of the Century Cures Act, medical imaging exams and procedure reports are released immediately into your electronic medical record. You may view this report before your referring provider. If you have questions, please contact your health care provider. BILATERAL SCREENING MAMMOGRAM WITH COMPUTER-AIDED DETECTION AND TOMOSYNTHESIS TECHNIQUE: CC and MLO views were obtained. These mammographic images have been obtained using full-field digital technique. These mammographic images were interpreted with the benefit of computer-aided detection. Breast Tomosynthesis was used in this interpretation. COMPARISON FILM: 12/26/21, 12/14/20. FINDINGS: The breasts are extremely dense, which lowers the sensitivity of mammography IMPRESSION: There is no radiographic evidence for malignancy. ASSESSMENT: BI-RADS Category 1: Negative RECOMMENDATION: Routine screening mammogram in 1 year. A lay language report of this examination will be provided to the patient. Ted Menendez M.D. Diagnostic Radiologist [email or web address] CHRISTINE/Dictated by: Ted Menendez MD @ 12/28/2022 9:48:00 AM (Electronically Signed)
== END 2022-12-27 12:58 | disposition home or self-care (01) ==
LOC: MAMMO 12:57
PROVIDERS: PCP Family Medicine; Visit Provider Family Medicine
DX: Z12.31 Encounter for screening mammogram for malignant neoplasm of breast (principal); R92.2 Inconclusive mammogram
CPT/HCPCS: 77063; 77067

== ENCOUNTER 2023-01-16 08:39 | Outpatient (CLI) | payer OTHER, SELFPAY | END 2023-01-16 08:40 | disposition home or self-care (01) | LOC: NFLDREF 01-17 11:44 | PROVIDERS: PCP Family Medicine; Referring Provider Family Medicine; Visit Provider Family Medicine | DX: Z00.00 Encounter for general adult medical examination without abnormal findings (principal); E78.5 Hyperlipidemia, unspecified | CPT/HCPCS: 80053; 80061 ==

== ENCOUNTER 2023-04-12 12:14 | Outpatient (CLI) | payer OTHER, SELFPAY ==
--- NOTE | 2023-04-12 12:15 | CRLHL7_ITS ---
For Patients: As a result of the Century Cures Act, medical imaging exams and procedure reports are released immediately into your electronic medical record. You may view this report before your referring provider. If you have questions, please contact your health care provider. INDICATION: menorrhagia COMPARISON: none TECHNIQUE: 2D scott scale and color Doppler images were acquired of the pelvis using a transabdominal and transvaginal approach. FINDINGS: Sonographic images demonstrate a normal size and smooth outer contour of the uterus. Uterus measures 9.0 cm in length by 4.1 cm in AP diameter by 5.2 cm in transverse dimension. The myometrium has a heterogeneous echotexture. There is an intramural fibroid present measuring 8 x 5 x 9 millimeters within the left mid uterus. The endometrial lining measures 9 mm in composite thickness. The right ovary measures 2.9 x 2.0 x 1.9 cm in size and the left ovary measures 2.6 x 1.9 x 1.6 cm. The ovaries demonstrate normal arterial and venous blood flow on color Doppler analysis. There are no suspicious fluid collections within the cul-de-sac. IMPRESSION: Endometrial thickness 9 millimeters. Small intramural fibroid measuring 9 millimeters. Dictated by Ted Menendez MD @ 04/13/2023 10:46:00 AM (Electronically Signed)
== END 2023-04-12 12:15 | disposition home or self-care (01) ==
LOC: US 12:15
PROVIDERS: PCP Family Medicine; Visit Provider Obstetrics & Gynecology
DX: N93.9 Abnormal uterine and vaginal bleeding, unspecified (principal); R93.89 Abnormal findings on diagnostic imaging of other specified body structures
CPT/HCPCS: 76830; 76856

== ENCOUNTER 2024-05-02 08:46 | Outpatient (CLI) | payer BC, SELFPAY ==
[2024-05-04 20:27] LABS: HPV Source Cervical; HPV, High Risk by TMA Not Detected
== END 2024-05-02 08:47 | disposition home or self-care (01) ==
PROVIDERS: PCP Family Medicine; Visit Provider Obstetrics & Gynecology
DX: N92.4 Excessive bleeding in the premenopausal period (principal); Z13.1 Encounter for screening for diabetes mellitus; Z13.6 Encounter for screening for cardiovascular disorders; Z13.9 Encounter for screening, unspecified; Z11.51 Encounter for screening for human papillomavirus (HPV)
CPT/HCPCS: 80061; 82947; 83540; 83550; 84443; 87624; 87625; 88141; 88142

== ENCOUNTER 2024-05-26 08:39 | Outpatient (CLI) | payer BC, SELFPAY ==
--- NOTE | 2024-05-26 09:51 | P.ANES_ITS ---
Anesthesia Charges Start Date/Time Anesthesia Start Date: 05/26/24 Anesthesia Start Time: 09:31 Stop Date/Time Anesthesia Stop Date: 05/26/24 Anesthesia Stop Time: 09:50 Coding CPT Codes CPT Codes: URMILA LWR INTST SCR COLSC - 52336 ([id number]) P1 - NORMAL HEALTHY PATIENT, QK - GRADER PATROL 2-4 CNCRNT ANES PROC, QX - MOTOR SCOOTER REPAIRER SVC W/ MED DIRECTION
--- NOTE | 2024-05-26 09:51 | W.ANESCHARGE ---
Anesthesia Charges Start Date/Time Anesthesia Start Date: 05/26/24 Anesthesia Start Time: 09:31 Stop Date/Time Anesthesia Stop Date: 05/26/24 Anesthesia Stop Time: 09:50 Coding CPT Codes CPT Codes: URMILA LWR INTST SCR COLSC - 26426 ([id number]) P1 - NORMAL HEALTHY PATIENT, QK - FIRE PROTECTION ENGINEERING TECHNICIAN 2-4 CNCRNT ANES PROC, QX - GRANULATOR MACHINE OPERATOR SVC W/ MED DIRECTION
--- NOTE | 2024-05-26 09:57 | P.ANES_ITS ---
Anesthesia Charges Start Date/Time Anesthesia Start Date: 05/26/24 Anesthesia Start Time: 09:31 Stop Date/Time Anesthesia Stop Date: 05/26/24 Anesthesia Stop Time: 09:50 Coding CPT Codes CPT Codes: URMILA LWR INTST SCR COLSC - 71655 ([id number]) P1 - NORMAL HEALTHY PATIENT, QK - RUBBER TIRE CURER 2-4 CNCRNT ANES PROC, QX - MACADAM RAKER SVC W/ MED DIRECTION
--- NOTE | 2024-05-26 09:57 | W.ANESCHARGE ---
Anesthesia Charges Start Date/Time Anesthesia Start Date: 05/26/24 Anesthesia Start Time: 09:31 Stop Date/Time Anesthesia Stop Date: 05/26/24 Anesthesia Stop Time: 09:50 Coding CPT Codes CPT Codes: URMILA LWR INTST SCR COLSC - 97856 ([id number]) P1 - NORMAL HEALTHY PATIENT, QK - LAUNDRY OPERATOR FINISHING 2-4 CNCRNT ANES PROC, QX - BEHAVIOUR SUPPORT TEACHER SVC W/ MED DIRECTION
== END 2024-05-26 08:40 | disposition home or self-care (01) ==
LOC: OP CLINIC 08:40
PROVIDERS: PCP Family Medicine; Visit Provider Surgery
DX: Z12.11 Encounter for screening for malignant neoplasm of colon (principal)
CPT/HCPCS: 00812; 45378; J2704

== ENCOUNTER 2024-07-22 12:46 | Outpatient (CLI) | payer BC, SELFPAY ==
--- NOTE | 2024-07-22 13:00 | CRLHL7_ITS ---
For Patients: As a result of the Century Cures Act, medical imaging exams and procedure reports are released immediately into your electronic medical record. You may view this report before your referring provider. If you have questions, please contact your health care provider. INDICATION: Screening Mammogram, 3D Asymptomatic 45F COMPARISON: 12/27/22, 12/26/21, 12/14/20 TECHNIQUE: CC and MLO views were obtained. These mammographic images have been obtained using full-field digital technique. These mammographic images were interpreted with the benefit of computer aided detection and tomosynthesis. BREAST COMPOSITION: The breasts are extremely dense, which lowers the sensitivity of mammography. FINDINGS: No suspicious findings. ASSESSMENT: BI-RADS 1 Negative RECOMMENDATION: Annual screening mammogram. A lay language report of this examination will be provided to the patient. Dictated by: Ted Menendez MD @ 07/24/2024 11:21:39 (Electronically Signed)
== END 2024-07-22 12:47 | disposition home or self-care (01) ==
LOC: MAMMO 12:46
PROVIDERS: PCP Family Medicine; Visit Provider Obstetrics & Gynecology
DX: Z12.31 Encounter for screening mammogram for malignant neoplasm of breast (principal); R92.343 Mammographic extreme density, bilateral breasts
CPT/HCPCS: 77063; 77067